=== PATIENT | female | born 1995 | race Two or more races ===

== ENCOUNTER 2018-01-26 21:46 | Emergency (ER) | payer SELFPAY ==
[~2018-01-26] VITALS: Ht 162.6 cm; Wt 75.0 kg
[2018-01-27] MEDS ORDERED: HYDROCODONE/ACETAMINOPHEN 5/325MG TABLET PO ONE (01:30)
[2018-01-27 04:49] VITALS: BP 94/59
== END 2018-01-27 04:49 | disposition home or self-care (01) ==
LOC: ER 21:46
DX: S06.0X0A Concussion without loss of consciousness, initial encounter (principal); S09.8XXA Other specified injuries of head, initial encounter; F17.200 Nicotine dependence, unspecified, uncomplicated; S80.10XA Contusion of unspecified lower leg, initial encounter; W10.9XXA Fall (on) (from) unspecified stairs and steps, initial encounter
CPT/HCPCS: 70450; 73552; 99284